=== PATIENT | female | born 1980 | race Caucasian/White ===

== ENCOUNTER 2017-10-19 18:24 | Emergency (ER) | payer MEDICAID ==
[~2017-10-19] VITALS: Ht 154.9 cm; Wt 75.0 kg
[2017-10-19 19:28] LABS: BASOPHILS % 0.7 % (0.0-2.0); EOSINOPHILS % 0.6 % (0.0-5.0); HEMATOCRIT. 28.8 % (36.0-48.0); HEMOGLOBIN. 8.9 g/dL (12.0-16.0); LYMPHOCYTES % 17.7 % (20.0-50.0); MEAN CORPUSCULAR HEMOGLOBIN 18.2 pg (28.0-32.0); MEAN CORPUSCULAR VOLUME 58.7 fL (81.0-99.0); MEAN PLATELET VOLUME 8.9 fl (7.4-10.4); MONOCYTES % 5.3 % (2.0-8.0); NEUTROPHILS % 75.7 % (40.0-76.0); PLATELET 275 x1000/uL (130-400); RED BLOOD CELL COUNT 4.91 mill/uL (4.2-5.4); RED CELL DISTRIBUTION WIDTH 19.2 % (11.6-14.6)
[2017-10-19 19:29] LABS: CLARITY URINE CLEAR (CLEAR); COLOR URINE YELLOW (YELLOW); KETONES URINE NEGATIVE (NEGATIVE); LEUKOCYTE ESTERASE URINE 2+ (NEGATIVE); NITRITE URINE NEGATIVE (NEGATIVE); OCCULT BLOOD URINE NEGATIVE (NEGATIVE); PROTEIN URINE NEGATIVE (NEGATIVE); UROBILINOGEN URINE 0.2 E.U./dL (0.2-1.0)
[2017-10-19 19:29] LABS: CHLORIDE 107 mEq/L (98-107)
[2017-10-19 19:46] LABS: PLATELET ESTIMATE NORMAL
[2017-10-19 19:53] LABS: B-HCG QUANTITATIVE 32912 mIU/mL (<3)
[2017-10-19] MEDS ORDERED: ACETAMINOPHEN 325MG TABLET PO ONE ×2 (22:30)
[2017-10-19] MEDS ORDERED: CEFTRIAXONE SODIUM 1 G/VIAL IM ONE (22:30)
[2017-10-19] MEDS ORDERED: LIDOCAINE HCL 1% 20ML VIAL (Pyxis) INJ INFIL ONE (22:30)
[2017-10-19] MEDS ORDERED: LIDOCAINE HCL/PF 1% 10 MG/ML 5ML VIAL IJ NR (22:36)
[2017-10-20] MEDS ORDERED: HYDROCODONE/ACETAMINOPHEN 5/325MG TABLET PO ONE (01:45)
[2017-10-20 02:26] VITALS: BP 101/52
== END 2017-10-20 02:35 | disposition home or self-care (01) ==
LOC: ER 22:34
DX: O20.0 Threatened abortion (principal); O26.92 Pregnancy related conditions, unspecified, second trimester; O23.42 Unspecified infection of urinary tract in pregnancy, second trimester; D25.9 Leiomyoma of uterus, unspecified; D50.9 Iron deficiency anemia, unspecified; O34.12 Maternal care for benign tumor of corpus uteri, second trimester; O26.612 Liver and biliary tract disorders in pregnancy, second trimester; K80.70 Calculus of gallbladder and bile duct without cholecystitis without obstruction; O99.012 Anemia complicating pregnancy, second trimester; Z3A.17 17 weeks gestation of pregnancy; Z87.891 Personal history of nicotine dependence
CPT/HCPCS: 36415; 76705; 76805; 80053; 81003; 84702; 85025; 86850; 86900; 86901; 96372; 99285; J0696; J3490